=== PATIENT | male | born 1945 | race Caucasian/White ===

== ENCOUNTER 2016-09-13 17:52 | Emergency (ER) | payer MEDICARE, BC ==
[~2016-09-13] VITALS: Ht 175.3 cm; Wt 98.6 kg
[~2016-09-13 17:52] MED LIST: ALTOPREV10 MG PO; ASPIRIN 32325 MG/TAB PO; CLARITIN 1010 MG/TAB PO; COZAAR100 MG PO; D-31000 IU PO; DESYREL 50MG50 MG PO; EPA1000 MG PO; GLUCOPHAGE850 MG/TAB PO; GLUCOTROL XL10 MG PO; HYDRODIURIL50 MG PO; LEVAQUIN 750MG750 M1 PO; MICRO-K 1010 MEQ PO; MYSOLINE 5050 MG/TAB PO; NEURONTIN300 MG/CAP PO; NITROQUICK0.4 MG SL; NORVASC 10MG10 MG PO; PLAVIX 75MG TAB75 MG PO; PROTONIX 40MG T40 MG PO; REQUIP2 MG PO; TOPROL XL100 MG PO; ULTRAM 50MG TAB50 MG PO; ZOFRAN 4MG T4 MG/TAB PO; ZOLOFT 100MG100 MG PO; [UNRECOGNIZED DRUG - OTHER] PO
[2016-09-13 17:56] VITALS: TEMP 97.8
[2016-09-13] MEDS ORDERED: VTAMINC250TA PO (18:35)
[2016-09-13] MEDS ORDERED: PROAIR HFA0.09 MG/AC (18:36)
[2016-09-13] MEDS ORDERED: EFFEXOR-XR150 MG PO (18:37)
[2016-09-13] MEDS ORDERED: REMERON 15M15 MG/TA1 PO (18:37)
[2016-09-13] MEDS ORDERED: CATAPRES0.2 MG PO (18:38)
[2016-09-13] MEDS ORDERED: LIPITOR 80MG80 MG PO (18:38)
[2016-09-13] MEDS ORDERED: IRON325 MG PO (18:39)
[2016-09-13] MEDS ORDERED: ONGLYZA2.5 MG PO (18:40)
[2016-09-13] MEDS ORDERED: MALARONE 250 MG1 TAB PO (18:47)
[2016-09-13 19:04] LABS: BASO % 0.4 % (0.0-2.0); EOS # 0.2 (0.0-0.7); EOS % 3.3 % (0-4.0); GRAN # 2.5 (1.4-6.5); GRAN % 53.2 % (42.2-75.2); HEMOGLOBIN 12.1 g/dl (13.5-18.0); MEAN CELL VOLUME 85 fl (80.0-100.0); MEAN CORPUSCULAR HEMOGLOBIN 29 pg (27.0-31.0); MEAN CORPUSCULAR HGB CONC 34 g/dl (33.0-37.0); MONO % 21.9 % (1.7-9.3); PLATELET COUNT 142 K/mm3 (130-400); RED BLOOD COUNT 4.18 M/mm3 (4.20-5.60); REDCELL DISTRIBUTION WIDTH-CV 13.7 % (11.5-14.5); WHITE BLOOD COUNT 4.6 K/mm3 (4.8-10.8)
[2016-09-13 19:08] LABS: HEMATOCRIT 35.4 % (42.0-52.0)
[2016-09-13 19:16] LABS: ADJUSTED CALCIUM 9.4 mg/dL (8.4-10.2); ALANINE AMINOTRANSFERASE 31 U/L (21-72); ALBUMIN 3.7 gm/dL (3.5-5.0); ALKALINE PHOSPHATASE 84 U/L (50-136); ANION GAP 13 mmol/L (7-16); BILIRUBIN,TOTAL 0.4 mg/dL (0.0-1.0); BLOOD UREA NITROGEN 22 mg/dL (9-20); CALCIUM 9.2 mg/dL (8.4-10.2); CARBON DIOXIDE 29 mmol/L (22-30); CHLORIDE 101 mmol/L (98-107); CREATININE, serum 1.38 mg/dL (0.66-1.25); GLUCOSE 129 mg/dL (74-106); LIPASE 1000 U/L (23-300); POTASSIUM 3.8 mmol/L (3.4-5.0); SODIUM 143 mmol/L (137-145)
[2016-09-13 19:28] LABS: B-TYPE NATRIURETIC PEPTIDE 217 pg/mL (0-125)
[2016-09-13 19:30] LABS: INFLUENZA B POSITIVE
[2016-09-13 19:41] LABS: TROPONIN-I < 0.012 ng/mL (0.000-0.034)
[2016-09-13] MEDS ORDERED: ULTRAM 50MG TAB50 MG PO (20:24)
[2016-09-13 20:34] VITALS: BP 142/82; PULSE 73
[2016-09-13 20:40] LABS: PH 5 (5-8); SQUAMOUS EPITHELIAL 0-2 /hpf; URINE APPEARANCE Clear; URINE BACTERIA None Seen /hpf; URINE BILIRUBIN Negative (NEGATIVE); URINE BLOOD Negative (NEGATIVE); URINE COLOR Yellow; URINE GLUCOSE 1+ (NEGATIVE); URINE KETONE Negative (NEGATIVE); URINE UROBILINOGEN Negative (NEGATIVE)
== END 2016-09-13 21:08 | disposition home or self-care (01) ==
LOC: COL.ER 17:52
PROVIDERS: Emergency Medicine
DX: J10.1 Influenza due to other identified influenza virus with other respiratory manifestations (principal); E11.9 Type 2 diabetes mellitus without complications; I25.10 Atherosclerotic heart disease of native coronary artery without angina pectoris; I10 Essential (primary) hypertension; Z95.5 Presence of coronary angioplasty implant and graft; I25.2 Old myocardial infarction
CPT/HCPCS: J1170; J7030

== ENCOUNTER 2017-02-24 10:59 | Day surgery (SDC) | payer MEDICARE, BC ==
[2017-02-24] VITALS (9 sets, daily range): BP systolic 119–154; BP diastolic 66–76; PULSE 54–74; TEMP 97.4–97.7
[~2017-02-24] VITALS: Ht 175.3 cm; Wt 106.4 kg
[~2017-02-24 10:59] MED LIST changes: +CATAPRES0.2 MG PO; +EFFEXOR-XR150 MG PO; +IRON325 MG PO; +LIPITOR 80MG80 MG PO; +MALARONE 250 MG1 TAB PO; +ONGLYZA2.5 MG PO; +PROAIR HFA0.09 MG/AC; +REMERON 15M15 MG/TA1 PO; +VTAMINC250TA PO
[2017-02-24] MEDS ORDERED: ZANAFLEX 4MG TAB4 MG PO (11:54)
[2017-02-24] MEDS ORDERED: ZYRTEC 10MG10 MG PO (11:58)
[2017-02-24] MEDS ORDERED: GLUCOTROL 5M5 MG/TAB PO (11:59)
[2017-02-24] MEDS ORDERED: EPA FISH OIL1 SGL PO (12:00)
[2017-02-24] MEDS ORDERED: MOTRIN 800800 MG/TAB PO (12:00)
[2017-02-24] MEDS ORDERED: GLUCOPHAGE850 MG/TAB PO (12:02)
[2017-02-25] VITALS: BP 131/70; PULSE 70; TEMP 97.7
[2017-02-25 06:23] VITALS: BP 123/64; PULSE 64; TEMP 97.5
[2017-02-25 09:11] VITALS: BP 118/68; PULSE 63; TEMP 97.8
== END 2017-02-25 14:00 | disposition home or self-care (01) ==
LOC: SDCO 10:59 → SURG 10:59 → SDCO 18:45 → EDSTATUS 18:45 → SURG 18:45 → SDCO 02-25 14:00
DX: N20.1 Calculus of ureter (principal); N13.5 Crossing vessel and stricture of ureter without hydronephrosis; E11.9 Type 2 diabetes mellitus without complications; I10 Essential (primary) hypertension; G47.33 Obstructive sleep apnea (adult) (pediatric); M19.90 Unspecified osteoarthritis, unspecified site; E66.9 Obesity, unspecified; Z96.652 Presence of left artificial knee joint; Z79.84 Long term (current) use of oral hypoglycemic drugs; Z85.46 Personal history of malignant neoplasm of prostate
CPT/HCPCS: OP; C1769; C1894; C2617; J0690; J1940; J2175; J2405; J2704; J3010; J7030; J7120; Q9967

== ENCOUNTER 2017-03-04 13:54 | Observation (INO) | payer MEDICARE, BC ==
[~2017-03-04] VITALS: Ht 175.3 cm; Wt 105.6 kg
[~2017-03-04 13:54] MED LIST changes: +EPA FISH OIL1 SGL PO; +GLUCOTROL 5M5 MG/TAB PO; +MOTRIN 800800 MG/TAB PO; +ZANAFLEX 4MG TAB4 MG PO; +ZYRTEC 10MG10 MG PO
[2017-03-04 14:08] VITALS: BP 157/80; PULSE 60; TEMP 97.6
[2017-03-04 17:59] VITALS: BP 167/88; PULSE 57; TEMP 98.1
[2017-03-04 21:44] VITALS: BP 123/66; PULSE 59; TEMP 98
[2017-03-05] VITALS (8 sets, daily range): BP systolic 120–156; BP diastolic 59–89; PULSE 54–75; TEMP 97.7–98.5
== END 2017-03-05 16:06 | disposition home or self-care (01) ==
LOC: MEDICAL 13:54 → SURG 13:55
DX: N20.2 Calculus of kidney with calculus of ureter (principal); I25.10 Atherosclerotic heart disease of native coronary artery without angina pectoris; F41.9 Anxiety disorder, unspecified; E11.39 Type 2 diabetes mellitus with other diabetic ophthalmic complication; H40.9 Unspecified glaucoma; I10 Essential (primary) hypertension; E66.9 Obesity, unspecified; G47.33 Obstructive sleep apnea (adult) (pediatric); F43.10 Post-traumatic stress disorder, unspecified; M19.90 Unspecified osteoarthritis, unspecified site; Z95.818 Presence of other cardiac implants and grafts; Z96.652 Presence of left artificial knee joint; Z96.0 Presence of urogenital implants; Z79.01 Long term (current) use of anticoagulants; Z79.84 Long term (current) use of oral hypoglycemic drugs; Z87.891 Personal history of nicotine dependence; Z85.46 Personal history of malignant neoplasm of prostate; Z86.73 Personal history of transient ischemic attack (TIA), and cerebral infarction without residual deficits; Z80.42 Family history of malignant neoplasm of prostate; Z82.5 Family history of asthma and other chronic lower respiratory diseases; Z83.3 Family history of diabetes mellitus
CPT/HCPCS: G0378; G0379; J2270; J7030